=== PATIENT | female | born 1965 | race Caucasian/White ===

== ENCOUNTER → 2019-04-30 | Outpatient (CLI) | payer BC ==
--- NOTE | 2019-05-01 09:39 | BD ---
EXAMINATION TYPE: Axial Bone Density DATE OF EXAM: 04/30/2019 COMPARISON: NONE CLINICAL HISTORY: 53 YR OLD FEMALE....ICD-10 CODE: Z78.0 POST MENOPAUSAL Height: 63.2 Weight: 161 FRAX RISK QUESTIONS: Glucocorticoids (More than 3mos): YES (Ex: prednisone, prednisolone, methylprednisolone, dexamethasone, and hydrocortisone). History of Fracture in Adulthood: YES RISK FACTORS HISTORY OF: HX OF FIBULA FX AT 52 YRS OLD Surgery to Spine HX OF LUMBAR DISC RUPTURE L4 AND L5/ALSO STEROIDAL INJECTIONS INTO BACK Active: YES Postmenopausal woman: YES, AT ABOUT 52, HYST. MID 40s, PARTIAL Hyperparathyroidism: NO Adrenal Insufficiency: NO MEDICATIONS: Prednisone or other steroids: YES, ON AND OFF....PLUS INJECTIONS..FOR YRS Additional Medications: BP MEDS, STATIN FOR CHOLESTEROL, VIT D DAILY, MULTIVITAMIN Additional History: HYPTERTENSION, CHOLESTEROL EXAM MEASUREMENTS: Bone mineral densitometry was performed using the [employer] System. Bone mineral density as measured about the Lumbar spine is: ----- L1-L4(G/cm2): 1.070 T Score Values are as follows: ----- L1: -0.9 ----- L2: -0.4 ----- L3: -0.8 ----- L4: -1.6 ----- L1-L4: -0.9 Bone mineral density FIRST DEXA SCAN......BASELINE STUDY Bone mineral density about the R hip (g/cm2): 0.852 Bone mineral density about the L hip (g/cm2): 0.958 T Score values are as follows: -----R Neck: -1.4 -----L Neck: -1.2 -----R Total: -1.2 -----L Total: -0.4 Bone mineral density BASELINE STUDY FRAX%s: THERE IS A 14.8% CHANCE FOR A MAJOR OSTEOPOROTIC FX AND A 1.4% FOR HIP.....PROBABILITY FOR FX IN 10 YRS TIME IMPRESSION: Osteopenia (T Score between -2.5 and -1). There is slightly increased risk of fracture and the patient may be considered for treatment. Re-Screen 2-5 years. NOTE: T-SCORE=SD OF THE YOUNG ADULT MEAN.
== END | disposition home or self-care (01) ==
LOC: RADBDWWP 14:57
PROVIDERS: ATTEND Family Medicine
DX: M85.88 Other specified disorders of bone density and structure, other site (principal); Z78.0 Asymptomatic menopausal state
CPT/HCPCS: 77080

== ENCOUNTER → 2020-12-28 | Outpatient (CLI) | payer BC ==
[2020-12-28 08:03] VITALS: BP 126/86; PULSE 78; RESP 18; TEMP 98.3
--- NOTE | 2020-12-28 08:19 | P.CONS ---
History of Present Illness - Reason for Consult Consult date: 12/28/20 - Chief Complaint Lower back pain - History of Present Illness This is a 55-year-old lady with history of chronic axial lower back pain. The patient had lumbar laminectomy 3 years ago which stopped her pain in the right leg however her lower back pain continues to be a problem. She has multiple procedures by Dr. Coleman including lately a diagnostic lumbar medial branch block at levels from L3 to L5 as per documentation. This last procedure give her 90% of pain relief which lasted for a few weeks surprisingly. The patient was referred to our clinic for residency ablation of the lumbar medial branches from L3 to L5. The patient had physical therapy previously she continues to do the exercises she learned at her physical therapy sessions. She denies any treatment with anticoagulants or any history of diabetes. Her last lumbar spine MRI showed significant degeneration at the L4 5 level it also showed insufficiency fractures in the sacral area. The patient stated that her lower back surgery improved her right leg pain however it left her with a dropped right foot for which she had Achilles tendon lengthening. Past Medical History Past Medical History: Hyperlipidemia, Hypertension Additional Past Medical History / Comment(s): cyst broke in brain develeoped water in brain 2 drains placed and then cyst removed. lower back pain. lt heel spur History of Any Multi-Drug Resistant Organisms: None Reported Past Surgical History: Back Surgery Additional Past Surgical History / Comment(s): cyst drained from brain. rt foot tendon transfer Past Anesthesia/Blood Transfusion Reactions: No Reported Reaction, Motion Sickness, Postoperative Nausea & Vomiting (PONV) Past Psychological History: No Psychological Hx Reported Smoking Status: Current every day smoker Past Alcohol Use History: None Reported Additional Drug Use History / Comment(s): cbd cream Medications and Allergies Home Medications Medication Instructions Recorded Confirmed Type Ascorbic Acid [Vitamin C] 500 mg PO DAILY 12/23/20 12/23/20 History Atorvastatin [Lipitor] 20 mg PO DAILY 12/23/20 12/23/20 History Cholecalciferol [Vitamin D3 (25 25 mcg PO DAILY 12/23/20 12/23/20 History Mcg = 1000 Iu)] HYDROcodone/APAP 5-325MG [[place] 1 tab PO Q6HR PRN 12/23/20 12/23/20 History 5-325] Losartan Potassium 50 mg PO DAILY 12/23/20 12/23/20 History Multivitamins, Thera [Multivitamin 1 tab PO DAILY 12/23/20 12/23/20 History (formulary)] Allergies Allergy/AdvReac Type Severity Reaction Status Date / Time No Known Allergies Allergy Verified 12/23/20 13:05 Physical Exam Vitals: Vital Signs Temp Pulse Resp BP Pulse Ox 12/28/20 07:58 98.3 F 78 18 126/86 96 - Constitutional General appearance: average body habitus - EENT Eyes: PERRLA - Integumentary Integumentary: no calor, no cellulitis, no cyanotic, no decreased turgor, no flushed, no jaundiced, no normal, no normal turgor, no pale, no rash, no ulcer - Neurologic Neuro exam of the lower extremities showed normal and symmetrical muscle strength except for decreased right dorsiflexion 4 out of 5 due to history of foot drop after her back surgery. Straight leg raising test negative bilaterally Normal and symmetrical deep tendon reflexes in the lower extremities except for absent ankle reflex on the right side. Neurologic: CNII-XII intact - Musculoskeletal Musculoskeletal: gait normal - Psychiatric Psychiatric: A&O x's 3, intact judgment & insight Assessment and Plan Plan: Diagnoses: Lumbar spondylosis without myelopathy Sacral insufficiency fractures Status post lumbar laminectomy at the L4 5 level History of dropfoot with Achilles tendon lengthening on the right side This is a 55-year-old lady with axial lower back pain which responded greatly to a diagnostic lumbar medial branch block bilaterally in the L3 to L5 levels. The patient is a good candidate for lumbar medial branch RFA I will start by doing the right side from L3 to L5 and a few weeks after that we do the left side.. The procedure was explained to the patient and her and her questions were answered. The patient denies any treatment with anticoagulants and any history of diabetes. I thank you for the referral
== END ==
LOC: PNWHC3 07:38
PROVIDERS: ATTEND Anesthesiology
DX: M47.816 Spondylosis without myelopathy or radiculopathy, lumbar region (principal); M96.1 Postlaminectomy syndrome, not elsewhere classified; S32.10XA Unspecified fracture of sacrum, initial encounter for closed fracture; I10 Essential (primary) hypertension; E78.5 Hyperlipidemia, unspecified; F17.200 Nicotine dependence, unspecified, uncomplicated; Z87.828 Personal history of other (healed) physical injury and trauma; Z79.899 Other long term (current) drug therapy
CPT/HCPCS: 99211

== ENCOUNTER 2021-02-03 05:56 | Day surgery (SDC) | payer BC ==
[2021-02-01 15:37] VITALS: BMI 25.7
[~2021-02-03 05:56] MED LIST: LACTATED RINGERS 1,000 ML IV SCH
[2021-02-03 06:28] VITALS: RESP 16; TEMP 97.3
[2021-02-03] MEDS ORDERED: LIDOCAINE 1% (10MG/ML) FOR IV START INTRADERMA ONE (06:35)
[2021-02-03] MEDS ORDERED: TRIAMCINOLONE ACETONIDE 40 MG/ML 1 ML VIAL ONE (07:12)
[2021-02-03] MEDS ORDERED: fentaNYL (PF) 50 MCG/ML 2 ML AMP ONE (07:12)
[2021-02-03] MEDS ORDERED: ROPIVACAINE 5MG/ML 20ML VIAL ONE (07:12)
[2021-02-03] MEDS ORDERED: MIDAZOLAM 2 MG/2 ML VIAL ONE (07:12)
--- NOTE | 2021-02-03 07:36 | P.PCN ---
Date of Procedure: 02/03/21 Procedure(s) Performed: PREOPERATIVE DIAGNOSIS: 1-Lumbar Spondylosis with Facet Arthropathy without myelopathy. POSTOPERATIVE DIAGNOSIS: 1- Lumbar Spondylosis with Facet Arthropathy without myelopathy. PROCEDURES : Right Radiofrequency thermocoagulation, L3 , L4 , and L5 medial branch, with fluoroscopic guidance (fluoroscopy images available in the radiology department) ( to denervate the facet joint at Right L4-5 ,and L5-S1 levels ) ANESTHESIA: Monitered anesthesia care. EBL: Minimal PROCEDURE INDICATION: The patient with low back pain secondary to lumbar facet arthropathy who had more than 50% relief of her pain with previous diagnostic lumbar medial branch block with bupivacaine. PROCEDURE DESCRIPTION / TECHNIQUE: The patient was seen and identified in the preoperative area. Risks, benefits, complications, including but not limited to risk of infection ,bleeding , allergic reactions to the medications and no complete pain releife , and alternatives were discussed with the patient, the patient agreed to proceed with the procedure and signed the consent. IV was started. Vital signs remained stable throughout the procedure. Patient was taken to the OR and time out was completed. The patient was placed in the prone position on the procedure table. The lumber area was prepped and draped in the usual sterile fashion. . Vital signs were closely monitored during the procedure .IV sedation was used during the procedure to decrease patients anxiety. Using AP and then oblique fluoroscopy, the ``eye of the Timothy dog corresponding to the connection between the superior and transverse articular processes of right L3, L4, and L5 were identified, marked, and localized with 1% lidocaine. Subsequently, a 18 -ev radiofrequency cannula with a 10- mm active tip was advanced guided by fluoroscopy to each of the``eyes of the S adam dog at right L3, L4, and L5. Each site then underwent sensory testing at 50 Hz and 0 to 1 volt and motor testing at 2.5 Hz and 0 to 3 volt with local stimulation, but no radicular symptoms down the legs. Thereafter each sites underwent radiofrequency thermocoagulation at 80 degrees celsius for 90 seconds after injecting 0.5 ml of PF Ropivacaine 1ml, then after the thermocoagulation done , 1 ml of the block solution containing Kenalog 40 mg and 3 ml of Ropivacaine 0.5% was injected at the right L3 , L4 , and L5 , levels after negative aspiration of CSF and blood and with no paresthesias. Cannulas were retracted while injecting lidocaine 1% until the needle is out. . At the end of the procedure, the skin was cleansed and bandages were applied. COMPLICATIONS: No acute complications. DISPOSITION / PLANS: The patient was placed in a supine position and transferred to the recovery area in a stable condition for observation and was discharged from the recovery room after meeting discharge criteria. Home discharge instructions given to the patient by the staff. The patient was reexamined prior to discharge. The patient will schedule a follow up in the clinic in 2-4 weeks.
[2021-02-03] MEDS ORDERED: IV FLUID CONTINUATION 1,000 ML IV ONE (07:38)
--- NOTE | 2021-02-03 07:43 | FL ---
EXAMINATION TYPE: FL guided pain mgmt statistic DATE OF EXAM: 02/03/2021 HISTORY: Pain 10sec fluoro time, 3 images to PACS
[2021-02-03 07:53] VITALS: BP 119/81; PULSE 74
== END 2021-02-03 08:05 | disposition home or self-care (01) ==
LOC: ORPAIN 05:56
PROVIDERS: ATTEND Specialist
DX: M47.816 Spondylosis without myelopathy or radiculopathy, lumbar region (principal); I10 Essential (primary) hypertension; E78.5 Hyperlipidemia, unspecified; K21.9 Gastro-esophageal reflux disease without esophagitis; Z79.891 Long term (current) use of opiate analgesic; Z79.899 Other long term (current) drug therapy; Z90.710 Acquired absence of both cervix and uterus
CPT/HCPCS: 64635; 64636; J2250; J3301; J3010; J2795

== ENCOUNTER 2021-03-17 05:59 | Day surgery (SDC) | payer BC ==
[2021-03-15 16:55] VITALS: BMI 26.6
[2021-03-17] MEDS ORDERED: LACTATED RINGERS 1,000 ML IV SCH (06:17)
[2021-03-17 06:34] VITALS: TEMP 97.8
[2021-03-17] MEDS ORDERED: LACTATED RINGERS 1,000 ML IV ONE (06:34)
[2021-03-17] MEDS ORDERED: ROPIVACAINE 5MG/ML 20ML VIAL ONE (07:26)
[2021-03-17] MEDS ORDERED: TRIAMCINOLONE ACETONIDE 40 MG/ML 1 ML VIAL ONE (07:26)
[2021-03-17] MEDS ORDERED: .fentaNYL (PF) 50 MCG/ML AMP ONE (07:26)
[2021-03-17] MEDS ORDERED: MIDAZOLAM 2 MG/2 ML VIAL ONE (07:26)
--- NOTE | 2021-03-17 07:53 | P.PCN ---
Date of Procedure: 03/17/21 Procedure(s) Performed: PREOPERATIVE DIAGNOSIS: 1-Lumbar Spondylosis with Facet Arthropathy without myelopathy. POSTOPERATIVE DIAGNOSIS: 1- Lumbar Spondylosis with Facet Arthropathy without myelopathy. PROCEDURES : Left Radiofrequency thermocoagulation, L3 , L4 , and L5 medial branch, with fluoroscopic guidance (fluoroscopy images available in the radiology department) ( to denervate the facet joint at Left L4-5 ,and L5-S1 levels ) ANESTHESIA: Monitered anesthesia care. EBL: Minimal PROCEDURE INDICATION: The patient with low back pain secondary to lumbar facet arthropathy who had more than 50% relief of her pain with previous diagnostic lumbar medial branch block with bupivacaine. PROCEDURE DESCRIPTION / TECHNIQUE: The patient was seen and identified in the preoperative area. Risks, benefits, complications, including but not limited to risk of infection ,bleeding , allergic reactions to the medications and no complete pain releife , and alternatives were discussed with the patient, the patient agreed to proceed with the procedure and signed the consent. IV was started. Vital signs remained stable throughout the procedure. Patient was taken to the OR and time out was completed. The patient was placed in the prone position on the procedure table. The lumber area was prepped and draped in the usual sterile fashion. . Vital signs were closely monitored during the procedure .IV sedation was used during the procedure to decrease patients anxiety. Using AP and then oblique fluoroscopy, the ``eye of the Timothy dog corresponding to the connection between the superior and transverse articular processes of Left L3, L4, and L5 were identified, marked, and localized with 1% lidocaine. Subsequently, a 18 [id number] radiofrequency cannula with a 10-mm active tip was advanced guided by fluoroscopy to each of the``eyes of the Timothy dog at Left L3, L4, and L5. Each site then underwent sensory testing at 50 Hz and 0 to 1 volt and motor testing at 2.5 Hz and 0 to 3 volt with local stimulation, but no radicular symptoms down the legs. Thereafter each sites underwent radiofrequency thermocoagulation at 80 degrees celsius for 90 seconds after injecting 0.5 ml of PF Ropivacaine 1ml, then after the thermocoagulation done , 1 ml of the block solution containing Kenalog 40 mg and 3 ml of Ropivacaine 0.5% was injected at the Left L3 , L4 , and L5 , levels after negative aspiration of CSF and blood and with no paresthesias. Cannulas were retracted while injecting lidocaine 1% until the needle is out. . At the end of the procedure, the skin was cleansed and bandages were applied. COMPLICATIONS: No acute complications. DISPOSITION / PLANS: The patient was placed in a supine position and transferred to the recovery area in a stable condition for observation and was discharged from the recovery room after meeting discharge criteria. Home discharge instructions given to the patient by the staff. The patient was reexamined prior to discharge. The patient will schedule a follow up in the clinic in 2-4 weeks.
[2021-03-17] MEDS ORDERED: IV FLUID CONTINUATION 1,000 ML IV ONE (07:56)
[2021-03-17 08:01] VITALS: RESP 16
--- NOTE | 2021-03-17 08:07 | FL ---
EXAMINATION TYPE: FL guided pain mgmt statistic DATE OF EXAM: 03/17/2021 CLINICAL HISTORY: Low back pain. TECHNIQUE: Fluoroscopy. COMPARISON: None. FINDINGS: Fluoroscopic guidance was provided during pain relief procedure performed by Dr. Holland . A total of 42 seconds of fluoroscopic time was utilized during the procedure and 6 spot images are acquired. Images acquired shows needle localization at several levels in the lower lumbar spine. IMPRESSION: As Above.
[2021-03-17 08:16] VITALS: BP 123/85; PULSE 63
== END 2021-03-17 08:40 | disposition home or self-care (01) ==
LOC: ORPAIN 05:59
PROVIDERS: ATTEND Specialist
DX: M47.816 Spondylosis without myelopathy or radiculopathy, lumbar region (principal); I10 Essential (primary) hypertension; Z79.899 Other long term (current) drug therapy
CPT/HCPCS: 64635; 64636; J2250; J3301; J3010; J2795

== ENCOUNTER → 2021-04-05 | Outpatient (CLI) | payer BC ==
--- NOTE | 2021-04-05 09:50 | P.PN ---
Subjective Progress Note Date: 04/05/21 his follow-up visit for this 55 years old female with a chronic history of severe low back pain, she is diagnosed with lumbar spondylosis with lumbar facet arthropathy,recenletly we have done RFA of the medial branch lumbar area at L4 5 and L5-S1,reported that she gets excellent pain relief and she had minimal or no pain most of the time her activity of daily livings improved significantly after the RFA, denies any motor or sensory deficit, Objective - Exam Physical Examinations : -Constitutiona : Cooperative , not in acute distress . -HEENT : nech : supple , no Lymphadenopathy , normal thyroid size . : eyes : no ptosis , no icterus, no photophobia . - neurologic : Cranial nerve II to XII intact , no focal neurological deffecit . -psychatric : alert , oriented X 3 , appropriate affect , intact judgment and insight . -Lymphatic : no Lymphadenopathy . - musculoskeltal : Lumber spine moter stegnth lower extremities ,thigh and legs 5/5 Right side , 5/5 Left side Assessment and Plan Plan: assessment and plan=1-lumbar spondylosis with lumbar facet arthropathy without myelopathy Patient doing very well after the RFA of the medial branch lumbar area she will follow up when necessary Time with Patient: Less than 30
[2021-04-05 09:54] VITALS: BP 123/88; PULSE 79; RESP 18
== END ==
LOC: PNWHC3 09:23
PROVIDERS: ATTEND Specialist
DX: M47.816 Spondylosis without myelopathy or radiculopathy, lumbar region (principal)
CPT/HCPCS: 99211

== ENCOUNTER → 2021-09-18 | Outpatient (CLI) | payer BC ==
[2021-09-18 13:32] VITALS: BP 127/88; PULSE 84; RESP 18; TEMP 98.3
--- NOTE | 2021-09-18 13:52 | P.PN ---
Subjective Progress Note Date: 09/18/21 Principal diagnosis: A 56 yr old female with a history of severe and chronic low back pain secondary to lumbar degenerative disc diseases and lumbar spondylosis with facet arthropathy presents today for evaluation s/p BL RFA L3-L4 in 2020. She experienced 100% pain relief s/p procedure. Pain level is currently at 1/10 in intensity which is constant and annoying, localized to the left lower aspect of the lumbar spine but provoked to 4/10 in intensity when walking or any other form of activity. Pain is alleviated with heat, medications ([place], Celebrex), topicals, laying supine. Pt stated she underwent a lumbar laminectomy prior to 2005, then had a caudal PATRICIA with lysis while in [place] in 2005 with substantial pain relief. Interventional pain procedures completed include BL RFA L3-L5 Patient is currently on [place], Celebrex Patient denies any side effects of the medication(s), denies excessive drowsiness or sleepiness, denies suicidal ideation and reports that the current pain medication is helping to control the pain and improve activities of daily living. Patient denies any motor or sensory deficits. Patient denies any fever or night sweats, denies any change in the bowel movements or urination. Physical Examination: -Constitutional: Cooperative. Not in acute distress . -HEENT: Neck is supple. No lymphadenopathy. No thyromegaly. Normal thyroid size. Eyes: No ptosis , no icterus, no photophobia. ENT: No auditory deficits. Normal oropharynx. No Thrush. - Respiratory: Chest clear to auscultations bilaterally. No wheezing. No rhonchi. - Cardiovascular: Regular rate and rhythm. S1 / S2 , no S3 , no S4. - Gastrointestinal: Abdomen soft no tenderness. Bowel sounds positive in all four quadrants. No organomegaly. - Genitourinary: Deferred. - Neurologic: Cranial nerve II to XII intact. No focal neurological deficits. - Psychatric: Alert & oriented x 3. Matching mood & appropriate affect. Judgment and insight intact. - Lymphatic: No Lymphadenopathy. - Musculoskeletal: Cervical spine: Muscle bulk/ tone/ strength in the bilateral upper extremities normal Vertebral body tenderness to palpation over Facet loading test positive Thoracic spine Muscle bulk / tone/ strength in the bilateral paraspinal muscles normal Vertebral body tender to palpation over Facet loading test positive Lumbar spine: Motor bulk/ tone/ strength lower extremities , thigh and legs : 5/5 Deep tendon reflexes : Normal Knee Jerk. Normal Ankle Jerk . Vertebral body tenderness to palpation over Lumbar Facet Loading Test positive Straight Leg Raise: positive at 30 degrees right side/ left side Gaenslen's Test positive Sacral spine : Severe tenderness over the Sacroiliac joint: right side / left side Range of motion: Flexion of the lumbar spine <60 degrees Range of motion: Extension of the lumbar spine <20 degrees Vertebral body TTP over S1, L of midline > R. Gaenslen's Test positive Bryan's Test positive Heidy test: positive right side / left side Thigh Thrust Test Sacral Thrust Test Assessment and plan: Chronic low back pain secondary to lumbar degenerative disc disease , lumbar spondylosis with facet arthropathy without myelopathy Recommendation of Caudal PATRICIA w lysis. Pt exhibited sufficient and satisfactory pain relief s/p BL RFA L3-L5 procedure in 2020. Risks, benefits of procedure discussed and pt verbalized understanding. Denies anticoagulant use or medical history of diabetes. All patient questions answered MAPS reviewed and it was appropriate. I have spent 31 minutes on patient care today. Dr Holland was available by phone for the evaluation of this patient. The time was used to review the medical records including relevant urine studies and Prescription history (MAPs), review of the available imaging, evaluation and examination of the patient, coordination of care with the medical staff and if applicable referring physicians, as well as creation of the medical record Objective - Vital Signs Vital signs: Vital Signs Temp 98.3 F 09/18/21 13:23 Pulse 84 09/18/21 13:23 Resp 18 09/18/21 13:23 BP 127/88 09/18/21 13:23 Pulse Ox 97 09/18/21 13:23 FiO2 Intake & Output 09/17/21 09/18/21 09/18/21 18:59 06:59 18:59 Weight 68.039 kg PQRS Measure Charge Sheet Mode of Arrival: Ambulatory - Pain Location Lower Back Non-Pharmacological Interventions: Exercise, Heat, Home Exercise, Stretching Pharmacological Interventions: Block, Epidural, Scheduled Medication, Topical Medication PQRS Narrative: Blood Pressure 127/88 Pain Intensity [Lower Back] 4 Scale Used Numeric (1 - 10) Hx Alcohol Use (MH) No Home Medications: Ambulatory Orders Ascorbic Acid [Vitamin C] 1,000 mg PO DAILY 12/23/20 Atorvastatin [Lipitor] 20 mg PO HS 12/23/20 Cholecalciferol [Vitamin D3 (25 Mcg = 1000 Iu)] 25 mcg PO DAILY 12/23/20 HYDROcodone/APAP 5-325MG [[place] 5-325] 1 tab PO Q6HR PRN 12/23/20 Losartan Potassium 50 mg PO DAILY 12/23/20 Multivitamins, Thera [Multivitamin (formulary)] 1 tab PO DAILY 12/23/20 Ferrous Gluconate [Iron] 27 mg PO DAILY 02/01/21
== END ==
LOC: PNWHC3 12:59
PROVIDERS: ATTEND Specialist
DX: M51.36 Other intervertebral disc degeneration, lumbar region (principal); M47.816 Spondylosis without myelopathy or radiculopathy, lumbar region; M41.26 Other idiopathic scoliosis, lumbar region; M47.817 Spondylosis without myelopathy or radiculopathy, lumbosacral region; M46.1 Sacroiliitis, not elsewhere classified; M47.812 Spondylosis without myelopathy or radiculopathy, cervical region; M48.062 Spinal stenosis, lumbar region with neurogenic claudication; G89.29 Other chronic pain
CPT/HCPCS: 99211

== ENCOUNTER → 2022-12-05 | Outpatient (CLI) | payer BC ==
[2022-12-05 12:30] VITALS: BP 124/85; PULSE 73; RESP 16; TEMP 98
--- NOTE | 2022-12-05 15:12 | P.PAINPG ---
PQRS Measure Charge Sheet Comment: A 56 yr old female with a history of severe and chronic low back pain secondary to lumbar degenerative disc diseases and lumbar spondylosis with facet arthropathy presents today for evaluation. She states she experienced 95% pain relief x 8 mo s/p BL RFA L3-L5 procedure in Mar 2021. Pain level is provoked at 7/10 in intensity which is constant and sore in character, localized to the left lower aspect of the lumbar spine. Pain is provoked by walking or any other form of activity. Pain is alleviated with PT three times weekly x 1 yr which she is currently in, heat, medications, topicals, laying supine. Oswestry axial pain score of 16. Interventional pain procedures completed include BL RFA L3-L5 (2020) Patient is currently on Hope, Tyl, Ibu Patient denies any side effects of the medication(s), denies excessive drowsiness or sleepiness, denies suicidal ideation and reports that the current pain medication is helping to control the pain and improve activities of daily living. Patient denies any motor or sensory deficits. Patient denies any fever or night sweats, denies any change in the bowel movements or urination. Physical Examination: -Constitutional: Cooperative. Not in acute distress . -HEENT: Neck is supple. No lymphadenopathy. No thyromegaly. Normal thyroid size. Eyes: No ptosis , no icterus, no photophobia. ENT: No auditory deficits. Normal oropharynx. No Thrush. - Respiratory: Chest clear to auscultations bilaterally. No wheezing. No rhonchi. - Cardiovascular: Regular rate and rhythm. S1 / S2 , no S3 , no S4. - Gastrointestinal: Abdomen soft no tenderness. Bowel sounds positive in all four quadrants. No organomegaly. - Genitourinary: Deferred. - Neurologic: Cranial nerve II to XII intact. No focal neurological deficits. - Psychatric: Alert & oriented x 3. Matching mood & appropriate affect. Judgment and insight intact. - Lymphatic: No Lymphadenopathy. - Musculoskeletal: Cervical spine: Muscle bulk/ tone/ strength in the bilateral upper extremities normal Vertebral body tenderness to palpation over Facet loading test positive Thoracic spine Muscle bulk / tone/ strength in the bilateral paraspinal muscles normal Vertebral body tender to palpation over Facet loading test positive Lumbar spine: Motor bulk/ tone/ strength lower extremities , thigh and legs : 5/5 Deep tendon reflexes : Normal Knee Jerk. Normal Ankle Jerk . Vertebral body tenderness to palpation over Lumbar Facet Loading Test positive over BL L4-L5, L5-S1 Straight Leg Raise: positive at 30 degrees right side/ left side Gaenslen's Test positive Sacral spine : Severe tenderness over the Sacroiliac joint: right side / left side Range of motion: Flexion of the lumbar spine <60 degrees Range of motion: Extension of the lumbar spine <20 degrees Gaenslen's Test positive Bryan's Test positive Heidy test: positive right side / left side Thigh Thrust Test Sacral Thrust Test Assessment and plan: Chronic low back pain secondary to lumbar degenerative disc disease , lumbar spondylosis with facet arthropathy without myelopathy Recommendation of BL RFA L4-L5, L5-S1. Pt exhibited sufficient and satisfactory pain relief s/p BL RFA L3-L5 procedure in 2020. Risks, benefits of procedure discussed and pt verbalized understanding. Denies anticoagulant use or medical history of diabetes. All patient questions answered MAPS reviewed and it was appropriate. I have spent 31 minutes on patient care today. Dr Holland was available by phone for the evaluation of this patient. The time was used to review the medical records including relevant urine studies and Prescription history (MAPs), review of the available imaging, evaluation and examination of the patient, coordination of care with the medical staff and if applicable referring physicians, as well as creation of the medical record PQRS Narrative: Hx Alcohol Use (MH) No Home Medications: Ambulatory Orders Ascorbic Acid [Vitamin C] 1,000 mg PO DAILY 12/23/20 Atorvastatin [Lipitor] 20 mg PO HS 12/23/20 Cholecalciferol [Vitamin D3 (25 Mcg = 1000 Iu)] 25 mcg PO DAILY 12/23/20 HYDROcodone/APAP 5-325MG [Hope 5-325] 1 tab PO Q6HR PRN 12/23/20 Losartan Potassium 50 mg PO DAILY 12/23/20 Multivitamins, Thera [Multivitamin (formulary)] 1 tab PO DAILY 12/23/20 Ferrous Gluconate [Iron] 27 mg PO DAILY 02/01/21 Diclofenac Sodium Gel [Voltaren Gel] 100 gm TOPICAL BID PRN 30 Days #100 gm 09/20/21 Controlled Substance Measures - Controlled Substance Measures Is patient prescribed a controlled substance at discharge?: No
== END ==
LOC: PNWHC3 09:28
PROVIDERS: ATTEND Specialist
DX: M51.37 Other intervertebral disc degeneration, lumbosacral region (principal); M47.817 Spondylosis without myelopathy or radiculopathy, lumbosacral region; G89.29 Other chronic pain; M46.1 Sacroiliitis, not elsewhere classified; M48.062 Spinal stenosis, lumbar region with neurogenic claudication; M47.814 Spondylosis without myelopathy or radiculopathy, thoracic region
CPT/HCPCS: 99211

== ENCOUNTER → 2023-01-10 | Outpatient (CLI) | payer BC ==
--- NOTE | 2023-01-10 14:51 | P.PAINPG ---
Objective - Vital Signs Vital signs: Intake & Output 01/09/23 01/10/23 01/10/23 18:59 06:59 18:59 Weight 65.317 kg PQRS Measure Charge Sheet Comment: A 56 yr old female with a history of severe and chronic low back pain secondary to lumbar degenerative disc diseases and lumbar spondylosis with facet arthropathy presents today for evaluation. She states she experienced 95% pain relief x 8 mo s/p BL RFA L3-L5 procedure in Mar 2021. Pain level is provoked at 1/10 in intensity which is constant and sore in character, localized to the left lower aspect of the lumbar spine. Pain is provoked by walking or any other form of activity. Pain is alleviated with injections, PT three times weekly x 1 yr which she is currently in, heat, medications, topicals, laying supine. Oswestry axial pain score of 16. Interventional pain procedures completed include BL RFA L3-L5 (2020, Dec 2022) Patient is currently on [place], Tyl, Ibu Patient denies any side effects of the medication(s), denies excessive drowsiness or sleepiness, denies suicidal ideation and reports that the current pain medication is helping to control the pain and improve activities of daily living. Patient denies any motor or sensory deficits. Patient denies any fever or night sweats, denies any change in the bowel movements or urination. Physical Examination: -Constitutional: Cooperative. Not in acute distress . -HEENT: Neck is supple. No lymphadenopathy. No thyromegaly. Normal thyroid size. Eyes: No ptosis , no icterus, no photophobia. ENT: No auditory deficits. Normal oropharynx. No Thrush. - Respiratory: Chest clear to auscultations bilaterally. No wheezing. No rhonchi. - Cardiovascular: Regular rate and rhythm. S1 / S2 , no S3 , no S4. - Gastrointestinal: Abdomen soft no tenderness. Bowel sounds positive in all four quadrants. No organomegaly. - Genitourinary: Deferred. - Neurologic: Cranial nerve II to XII intact. No focal neurological deficits. - Psychatric: Alert & oriented x 3. Matching mood & appropriate affect. Ju dgment and insight intact. - Lymphatic: No Lymphadenopathy. - Musculoskeletal: Cervical spine: Muscle bulk/ tone/ strength in the bilateral upper extremities normal Vertebral body tenderness to palpation over Facet loading test positive Thoracic spine Muscle bulk / tone/ strength in the bilateral paraspinal muscles normal Vertebral body tender to palpation over Facet loading test positive Lumbar spine: Motor bulk/ tone/ strength lower extremities , thigh and legs : 5/5 Deep tendon reflexes : Normal Knee Jerk. Normal Ankle Jerk . Vertebral body tenderness to palpation over Lumbar Facet Loading Test positive over BL L4-L5, L5-S1 Straight Leg Raise: positive at 30 degrees right side/ left side Gaenslen's Test positive Sacral spine : Severe tenderness over the Sacroiliac joint: right side / left side Range of motion: Flexion of the lumbar spine <60 degrees Range of motion: Extension of the lumbar spine <20 degrees Gaenslen's Test positive Bryan's Test positive Heidy test: positive right side / left side Thigh Thrust Test Sacral Thrust Test Assessment and plan: Chronic low back pain secondary to lumbar degenerative disc disease , lumbar spondylosis with facet arthropathy without myelopathy Will manage residual pain and may return to clinic on an as needed basis. All patient questions answered MAPS reviewed and it was appropriate. I have spent 31 minutes on patient care today. Dr Holland was available by phone for the evaluation of this patient. The time was used to review the medical records including relevant urine studies and Prescription history (MAPs), review of the available imaging, evaluation and examination of the patient, coordination of care with the medical staff and if applicable referring physicians, as well as creation of the medical record PQRS Narrative: Hx Alcohol Use (MH) No Home Medications: Ambulatory Orders Ascorbic Acid [Vitamin C] 1,000 mg PO DAILY 12/23/20 Atorvastatin [Lipitor] 20 mg PO HS 12/23/20 Cholecalciferol [Vitamin D3 (25 Mcg = 1000 Iu)] 25 mcg PO DAILY 12/23/20 HYDROcodone/APAP 5-325MG [[place] 5-325] 1 tab PO Q6HR PRN 12/23/20 Losartan Potassium 50 mg PO DAILY 12/23/20 Multivitamins, Thera [Multivitamin (formulary)] 1 tab PO DAILY 12/23/20 Ferrous Gluconate [Iron] 27 mg PO DAILY 02/01/21 Controlled Substance Measures - Controlled Substance Measures Is patient prescribed a controlled substance at discharge?: No
[2023-01-10 14:56] VITALS: BP 133/76; PULSE 74; RESP 15; TEMP 98.2
== END ==
LOC: PNWHC3 14:13
PROVIDERS: ATTEND Specialist
DX: M51.37 Other intervertebral disc degeneration, lumbosacral region (principal); M47.817 Spondylosis without myelopathy or radiculopathy, lumbosacral region; G89.29 Other chronic pain
CPT/HCPCS: 99211

== ENCOUNTER → 2023-08-12 | Outpatient (CLI) | payer BC ==
--- NOTE | 2023-08-12 14:14 | P.PAINPG ---
PQRS Measure Charge Sheet Comment: A 58 yr old female with a history of severe and chronic low back pain secondary to lumbar degenerative disc diseases and lumbar spondylosis with facet arthropathy presents today for evaluation. Pt underwent a BL RFA of the L3-L5 in Dec 2022 and experienced 99% pain relief x 6 mo s/p procedure. Pain level is provoked at 6 /10 in intensity which is constant and sore in character, localized to the left lower aspect of the lumbar spine. Pain is provoked by walking or any other form of activity. Pain is alleviated with injections, PT three times weekly x 1 yr which ended in Jan 2023, physician guided exercises daily since Jan 2023, heat, medications, topicals, laying supine. Oswestry axial pain score of 17. Interventional pain procedures completed include BL RFA L3-L5 (Mar 2021, Dec 2022) Patient is currently on [place], Tyl, Ibu Patient denies any side effects of the medication(s), denies excessive drowsiness or sleepiness, denies suicidal ideation and reports that the current pain medication is helping to control the pain and improve activities of daily living. Patient denies any motor or sensory deficits. Patient denies any fever or night sweats, denies any change in the bowel movements or urination. Physical Examination: -Constitutional: Cooperative. Not in acute distress . -HEENT: Neck is supple. No lymphadenopathy. No thyromegaly. Normal thyroid size. Eyes: No ptosis , no icterus, no photophobia. ENT: No auditory deficits. Normal oropharynx. No Thrush. - Respiratory: Chest clear to auscultations bilaterally. No wheezing. No rhonchi. - Cardiovascular: Regular rate and rhythm. S1 / S2 , no S3 , no S4. - Gastrointestinal: Abdomen soft no tenderness. Bowel sounds positive in all four quadrants. No organomegaly. - Genitourinary: Deferred. - Neurologic: Cranial nerve II to XII intact. No focal neurological deficits. - Psychatric: Alert & oriented x 3. Matching mood & appropriate affect. Judgment and insight intact. - Lymphatic: No Lymphadenopathy. - Musculoskeletal: Cervical spine: Muscle bulk/ tone/ strength in the bilateral upper extremities normal Vertebral body tenderness to palpation over Facet loading test positive Thoracic spine Muscle bulk / tone/ strength in the bilateral paraspinal muscles normal Vertebral body tender to palpation over Facet loading test positive Lumbar spine: Motor bulk/ tone/ strength lower extremities , thigh and legs : 5/5 Deep tendon reflexes : Normal Knee Jerk. Normal Ankle Jerk . Vertebral body tenderness to palpation over Lumbar Facet Loading Test positive over BL L4-L5, L5-S1 Straight Leg Raise: positive at 30 degrees right side/ left side Gaenslen's Test positive Sacral spine : Severe tenderness over the Sacroiliac joint: right side / left side Range of motion: Flexion of the lumbar spine <60 degrees Range of motion: Extension of the lumbar spine <20 degrees Gaenslen's Test positive Bryan's Test positive Heidy test: positive right side / left side Thigh Thrust Test Sacral Thrust Test Assessment and plan: Chronic low back pain secondary to lumbar degenerative disc disease , lumbar spondylosis with facet arthropathy without myelopathy Recommendation fo BL RFA L3-L5. Exhibited substantial pain relief w prior BL RFA of the L3-L5 from Dec, 2022. Risks, benefits of procedure discussed and pt verbalized understanding. Protocol for discontinuation/ continuation of medications demetrius procedure discussed. All patient questions answered MAPS reviewed and it was appropriate. I have spent 31 minutes on patient care today. Dr Holland was available by phone for the evaluation of this patient. The time was used to review the medical records including relevant urine studies and Prescription history (MAPs), review of the available imaging, evaluation and examination of the patient, coordination of care with the medical staff and if applicable referring physicians, as well as creation of the medical record - Pain Location Bilateral Lower Back Non-Pharmacological Interventions: Chiropractic Treatment, Heat, Massage, Physical Therapy Pharmacological Interventions: Block, Epidural, PRN Medication, Scheduled Medication, Topical Medication PQRS Narrative: Hx Alcohol Use (MH) No Home Medications: Ambulatory Orders Ascorbic Acid [Vitamin C] 1,000 mg PO DAILY 12/23/20 Atorvastatin [Lipitor] 20 mg PO HS 12/23/20 Cholecalciferol [Vitamin D3 (25 Mcg = 1000 Iu)] 25 mcg PO DAILY 12/23/20 HYDROcodone/APAP 5-325MG [[place] 5-325] 1 tab PO Q6HR PRN 12/23/20 Losartan Potassium 50 mg PO DAILY 12/23/20 Multivitamins, Thera [Multivitamin (formulary)] 1 tab PO DAILY 12/23/20 Ferrous Gluconate [Iron] 27 mg PO DAILY 02/01/21 Controlled Substance Measures - Controlled Substance Measures Is patient prescribed a controlled substance at discharge?: No
[2023-08-12 14:35] VITALS: BP 144/95; PULSE 85; RESP 16
== END ==
LOC: PNWHC3 13:46
PROVIDERS: ATTEND Specialist
DX: M51.17 Intervertebral disc disorders with radiculopathy, lumbosacral region (principal); M47.27 Other spondylosis with radiculopathy, lumbosacral region; M41.26 Other idiopathic scoliosis, lumbar region; M46.1 Sacroiliitis, not elsewhere classified; M48.062 Spinal stenosis, lumbar region with neurogenic claudication; G89.29 Other chronic pain
CPT/HCPCS: 99211

== ENCOUNTER → 2023-09-23 | Outpatient (CLI) | payer BC ==
[2023-09-23 14:37] VITALS: BP 148/89; PULSE 91; RESP 16
--- NOTE | 2023-09-23 15:07 | P.PAINPG ---
PQRS Measure Charge Sheet Comment: A 58 yr old female with a history of severe and chronic low back pain secondary to lumbar degenerative disc diseases and lumbar spondylosis with facet arthropathy presents today for evaluation s/p BL RFA L3-L5. Pt states she experienced 95% pain relief s/p procedure. Pain level is provoked at 1 /10 in intensity which is constant and sore in character, localized to the left lower aspect of the lumbar spine. Pain is provoked by walking or any other form of activity. Pain is alleviated with injections, PT three times weekly x 1 yr which ended in Jan 2023, physician guided exercises daily since Jan 2023, heat, medications, topicals, laying supine. Oswestry axial pain score of 5. Interventional pain procedures completed include BL RFA L3-L5 (Mar 2021, Dec 2022, August 2023) Patient is currently on [place], Tyl, Ibu Patient denies any side effects of the medication(s), denies excessive drowsiness or sleepiness, denies suicidal ideation and reports that the current pain medication is helping to control the pain and improve activities of daily living. Patient denies any motor or sensory deficits. Patient denies any fever or night sweats, denies any change in the bowel movements or urination. Physical Examination: -Constitutional: Cooperative. Not in acute distress . -HEENT: Neck is supple. No lymphadenopathy. No thyromegaly. Normal thyroid size. Eyes: No ptosis , no icterus, no photophobia. ENT: No auditory deficits. Normal oropharynx. No Thrush. - Respiratory: Chest clear to auscultations bilaterally. No wheezing. No rhonchi. - Cardiovascular: Regular rate and rhythm. S1 / S2 , no S3 , no S4. - Gastrointestinal: Abdomen soft no tenderness. Bowel sounds positive in all four quadrants. No organomegaly. - Genitourinary: Deferred. - Neurologic: Cranial nerve II to XII intact. No focal neurological deficits. - Psychatric: Alert & oriented x 3. Matching mood & appropriate affect. Judgment and insight intact. - Lymphatic: No Lymphadenopathy. - Musculoskeletal: Cervical spine: Muscle bulk/ tone/ strength in the bilateral upper extremities normal Vertebral body tenderness to palpation over Facet loading test positive Thoracic spine Muscle bulk / tone/ strength in the bilateral paraspinal muscles normal Vertebral body tender to palpation over Facet loading test positive Lumbar spine: Motor bulk/ tone/ strength lower extremities , thigh and legs : 5/5 Deep tendon reflexes : Normal Knee Jerk. Normal Ankle Jerk . Vertebral body tenderness to palpation over Lumbar Facet Loading Test positive over BL L4-L5, L5-S1 Straight Leg Raise: positive at 30 degrees right side/ left side Gaenslen's Test positive Sacral spine : Severe tenderness over the Sacroiliac joint: right side / left side Range of motion: Flexion of the lumbar spine <60 degrees Range of motion: Extension of the lumbar spine <20 degrees Gaenslen's Test positive Bryan's Test positive Heidy test: positive right side / left side Thigh Thrust Test Sacral Thrust Test Assessment and plan: Chronic low back pain secondary to lumbar degenerative disc disease , lumbar spondylosis with facet arthropathy without myelopathy Will manage residual pain and may RTC on an as needed basis. All patient questions answered MAPS reviewed and it was appropriate. I have spent 31 minutes on patient care today. Dr Holland was available by phone for the evaluation of this patient. The time was used to review the medical records including relevant urine studies and Prescription history (MAPs), review of the available imaging, evaluation and examination of the patient, coordination of care with the medical staff and if applicable referring physicians, as well as creation of the medical record PQRS Narrative: Hx Alcohol Use (MH) No Home Medications: Ambulatory Orders Ascorbic Acid [Vitamin C] 1,000 mg PO DAILY 12/23/20 Atorvastatin [Lipitor] 20 mg PO HS 12/23/20 Cholecalciferol [Vitamin D3 (25 Mcg = 1000 Iu)] 25 mcg PO DAILY 12/23/20 HYDROcodone/APAP 5-325MG [[place] 5-325] 1 tab PO HS PRN 12/23/20 Losartan Potassium 50 mg PO QAM 12/23/20 Multivitamins, Thera [Multivitamin (formulary)] 1 tab PO DAILY 12/23/20 Ferrous Gluconate [Iron] 27 mg PO DAILY 02/01/21 Ibuprofen [Advil] 400 mg PO DIRECTED PRN 09/04/23 Phentermine HCl 37.5 mg PO QAM 09/04/23 Controlled Substance Measures - Controlled Substance Measures Is patient prescribed a controlled substance at discharge?: No
== END ==
LOC: PNWHC3 14:21
PROVIDERS: ATTEND Specialist
DX: M51.37 Other intervertebral disc degeneration, lumbosacral region (principal); M47.817 Spondylosis without myelopathy or radiculopathy, lumbosacral region
CPT/HCPCS: 99211

== ENCOUNTER → 2023-11-19 | Outpatient (CLI) | payer BC | END | disposition home or self-care (01) | LOC: LABPRL 10:20 | PROVIDERS: ATTEND Nurse Practitioner Family | DX: Z00.00 Encounter for general adult medical examination without abnormal findings (principal); I10 Essential (primary) hypertension; E55.9 Vitamin D deficiency, unspecified | CPT/HCPCS: 80053; 80061; 82306; 83036; 84439; 84443; 85025 ==